=== PATIENT | male | born 2000 | race Two or more races ===

== ENCOUNTER 2025-05-04 22:38 | Emergency (ER) | payer SELFPAY ==
[~2025-05-04] VITALS: Ht 172.7 cm; Wt 81.6 kg
[2025-05-05 00:03] VITALS: BP 127/70; TEMP 98.4; O2SAT 98
== END 2025-05-05 00:55 | disposition home or self-care (01) ==
LOC: ER 22:47
DX: S90.829A Blister (nonthermal), unspecified foot, initial encounter (principal); X58.XXXA Exposure to other specified factors, initial encounter; Y93.89 Activity, other specified; Y92.89 Other specified places as the place of occurrence of the external cause; Y99.9 Unspecified external cause status